=== PATIENT | female | born 2000 | race Caucasian/White ===

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

== ENCOUNTER → 2023-05-28 | Outpatient (CLI) | payer OTHER, SELFPAY ==
[2023-05-28 12:16] LABS: Erythrocyte Sedimentation Rate < 1 mm/hr (0-30)
[2023-05-28 12:24] LABS: Absolute Lymphocyte Count 1.12 X10^3/uL (0.83-4.51); Absolute Neutrophil Count 2.6 X10^3/uL (2.0-7.7); Basophil# 0.03 X10^3/uL; Basophil% 0.7 % (0-1); Eosinophil# 0.21 X10^3/uL; Eosinophils% 4.9 % (0-5); Hemoglobin 13.8 g/dL (12.0-15.0); Lymphocyte # 1.12 X10^3/ul (0.83-4.51); Lymphocyte % 26.2 % (19-41); Mean Corp Hgb Conc 32.1 g/dL (32-36); Mean Corpuscular Hgb 30.1 pg (27.0-32.0); Mean Corpuscular Volume 93.9 fL (81-99); Monocyte# 0.33 X10^3/uL; Monocyte% 7.7 % (0-10); NRBC Flagged by Analyzer 0 % (0-5); Neutrophil # 2.58 X10^3/uL (2.7-7.7); Neutrophil % 60.3 % (47-70); Platelet Count 202 K/mm3 (150-450); RBC Distribution Width CV 12.6 % (11.6-14.6); RBC Distribution Width SD 43.3 fl (35.1-43.9); Red Blood Count 4.58 M/mm3 (4.2-5.4); White Blood Count 4.3 K/mm3 (4.4-11.0)
[2023-05-28 12:41] LABS: ALB/GLOB Ratio 1.2 RATIO (0.9-2.4); AST(SGOT) 19 U/L (15-37); Alanine Aminotransfer ALT/SGPT 25 U/L (13-56); Albumin, Serum 3.7 g/dL (3.2-5.0); Alkaline Phosphatase 55 U/L (45-117); Anion Gap 3 (5-15); BUN 18 mg/dL (7-18); BUN/Creat Ratio 19.9 RATIO (10-20); CRP < 2.90 mg/L (0.0-3.0); Calcium,Total 9.1 mg/dL (8.5-10.1); Chloride 109 mmol/L (98-107); Creatinine, Serum 0.91 mg/dL (0.55-1.02); EST Glomerular Filtration Rate 83 mL/min (>60); Est Glom Filt Rate - Afr Amer 101 mL/min (>60); Globulin 3.1 g/dL (2.2-4.2); Glucose 82 mg/dL (74-106); Potassium 4.3 mmol/L (3.5-5.1); Protein, Total 6.8 g/dL (6.4-8.2); Rheumatoid Factor < 10.0 IU/mL (<15); Sodium Level 139 mmol/L (136-145)
[2023-05-28 13:09] LABS: Hepatitis B Surface Antibody Non-Reactive; Hepatitis B Surface Antigen Non-Reactive (Nonreactive); Hepatitis C Antibody Non-Reactive (Nonreactive)
[2023-05-29 11:08] LABS: ANTINUCLEAR ANTIBODIES DIRECT Positive (Negative)
[2023-06-01 18:07] LABS: CCP IgG Antibodies 4 units (0-19); HLA B27 Negative (.); QNTFERON TB Mitogen Value > 10.00 IU/mL (.); QNTFERON TB Nil Value 0 IU/mL (.); QNTFERON TB1+ Ag Value 0.02 IU/mL (.); QNTFERON TB2+ Ag Value 0.02 IU/mL (.); QNTIFERON TB Positive Criteria Negative (Negative)
== END | disposition home or self-care (01) ==
LOC: MTLAB 09:56
PROVIDERS: PCP Pediatrics; Referring Provider Internal Medicine Rheumatology; Visit Provider Internal Medicine Rheumatology
DX: M46.1 Sacroiliitis, not elsewhere classified (principal)
CPT/HCPCS: 36415; 80053; 81374; 85025; 85652; 86038; 86140; 86200; 86431; 86480; 86706; 86803; 87340

== ENCOUNTER → 2023-06-27 | Outpatient (CLI) | payer OTHER, SELFPAY ==
[2023-06-27 13:22] LABS: Prothrombin Time (Protime)PT. 13.3 SECONDS (11.7-14.9)
[2023-06-27 13:23] LABS: Protein, Urine (Random) 16.1 mg/dL (<11.9); Protein:Creat Ratio 61 mg/g CRE (0-200)
[2023-06-27 13:23] LABS: EXAGEN MAILED SPECIMEN
[2023-06-27 13:24] LABS: Partial Thromboplast Time 28.6 Seconds (24.1-36.2)
[2023-07-02 17:07] LABS: Dilute Prothrombin Time (dPT) 38.3 sec (0.0-47.6); Dilute Russell Viper Venom 33.3 sec (0.0-47.0); Hexagonal Phase Phospholipid 6 sec (0-11); Interpretation Comment: (.); PTT-LA 33.6 sec (0.0-43.5); Thrombin Time 17.5 sec (0.0-23.0); dPT Confirm Ratio 1.13 Ratio (0.00-1.34)
== END | disposition home or self-care (01) ==
LOC: LAB 12:14
PROVIDERS: PCP Pediatrics; Referring Provider Internal Medicine Rheumatology; Visit Provider Internal Medicine Rheumatology
DX: M46.1 Sacroiliitis, not elsewhere classified (principal); R76.8 Other specified abnormal immunological findings in serum
CPT/HCPCS: 36415; 82570; 84156; 85598; 85610; 85730

== ENCOUNTER 2023-08-13 08:00 | Outpatient (RCR) | payer OTHER, SELFPAY ==
--- NOTE | 2023-07-27 07:55 | HP.PTEVAL_ITS ---
Patient's Visit Information Visit Information Visit Information: VALENTIN KAPLAN is a 23 year old F referred to Physical Therapy by IRENE POON with a diagnosis of Spondylolysis. Date of Evaluation: 07/27/23 Physical Therapist: Darlin Madera DPT Visit Plan Frequency: 3x /Week Duration: 4 Weeks Plan: Focus on NEUTRAL spine core strength/stabilization- BRACE in standing. Start with low level Abd bracing exercises and build. HEP Given IE: Supine Abd Brace with October single leg and double leg, clams, HS Stretching Subjective Subjective: Patient reports that they think that she has spondy. She has had pain for 3 years on/off always in her low back that has always favored one side or the other- she has had mutliple MRI's- they diagnosed a spondy and put her in a back brace for 3 months. She has current pain in her low back- localized in the middle at this point. She has been in the brace since Sunday- she is in it for 3 months- she is in it all the time with the exception of showering and sleeping. She goes to school at [employer] and plays soccer- not currently playing soccer- home for break and goes back the of . They want her to do PT and then continue when she goes back- she would like to transfer back with her AT and also with PT. Worst pain in the last couple of days 3-4/10 she gets the most pain sitting long periods of time or playing. The pain does get to a 0/10- she gets relief when she gets up and moves around- sometimes better when she is laying flat. She does have some issues sleeping- usually a stomach or back sleeper. Previously she has done PT and AT for her back- she has done hip and core exercises- bugs- hand walkouts, palloff presses, biofeedback with exercises. 2 weeks ago she was doing her stuff and has not done anything really since then. Last time she played soccer was beginning of June. Nothing outside of PT. No N/T- No loss or change in bowel or bladder. PMHx: nothing other than back issue. Meds: none Objective Objective: Posture: brace- gives her good posture- without she has forward head, rounded shoulders Gait: no deviation noted SLS 30 sec without LOB bilateral Sensation: WNL bilateral LE to gross touch Flex: HS: mild Strength: Ankle: 5/5, Knee Right: Extn: 42, 44 Flexion: 25, 21 Hip: IR: 21, 23 ER: 25, 26, Flexion/Extn: 4/5 Left: Extn: 45, 46 Flexion: 21, 26 Hip IR: 21, 25 ER: 24, 23, Flexion/Ext: 4/5, Core: Fair Minus Palpation: tender along parapsinals and spinous process of L4-L5 Balance/Special Test Scores Oswestry Low Back Score: 4 Goals Goal 1:: Patient will report participation in home exercise program activities a minimum of 5 days per week, as adjunct to skilled physical therapy intervention in preparation for independent home management upon discharge. Goal Time Frame: 4-6 Weeks Goal 2:: Patient will report no pain with sleeping Goal Time Frame: 4-6 Weeks Rehabilitation Potential Physical Therapy Diagnosis: Patient presents with hypomobility- she has decreased LE and core strength/stabilization, flex and muscular endurance leadi ng to poor posture and increased pain with ADL's. Rehabilitation Potential: Excellent Anticipated Interventions Patient/Client Instruction: Educate patient on: Condition Therapeutic Exercise to Include: Strength training, Endurance training, Balance training, Coordination, Agility training, Body mechanics, Postural training, Flexibilty training, Gait and locomotor training, Neuromotor development, Passive ROM, Active ROM, Dynamic Lumbar Stabilization and Scapular Strength/Stabilization For the Purpose of:: To improve muscle performance and motor function Cryotherapy (ice pack, ice massage): Yes Thermo therapy (hot pack): Yes Text: Thank you for the opportunity to evaluate your patient. For Medicare and Medicare HMO plans, please review the plan of care and approve it. It will need to be FAXED BACK to us at [phone] for Medicare purposes. For Medicare only, by signing this I certify the plan of care. Please let me know if there are questions or concerns regarding this plan of care. Physician Signature: Date:
--- NOTE | 2023-08-13 09:04 | HP.PTDCSUM ---
Discharge Summary D/C summary: It has been my pleasure to treat VALENTIN KAPLAN referred by IRENE POON, with the diagnosis of Spondylolysis for a total of 7 visit(s). Discharge Date: Please see the following information for a summary of their discharge status. Subjective Subjective: Patient reports that she does not really have any pain. She has not really sat for a long time lately due to not being in school. 08/15 in the last few weeks. The last time she had pain was 2 days ago when she had to sit and it more stiff than anything else. Just in her low back- no pain radiating down the leg. Goes back to school tonight- her plan is to keep doing PT- she is planning to transfer back down there. Pain Bilateral Back: Pain Intensity (Out of 10): 0 Overall Improvement % Improvement: 80 Objective Objective/Function: Objective: Posture: brace- gives her good posture- without she has forward head, rounded shoulders Gait: no deviation noted SLS 30 sec without LOB bilateral Sensation: WNL bilateral LE to gross touch Flex: HS: mild Strength: Ankle: 5/5, Knee Right: Extn: 53 Flexion: 29 Hip: IR: 28 ER: 29 Flexion: 52 Extn: 53 Left: Knee: Extn: 56 Flexion: 29 Hip IR: 25 ER:32, Flexion: 51 Extn: 49, Core: Fair Palpation: tender along parapsinals and spinous process of L4-L5 Goals Goal 1:: Patient will report participation in home exercise program activities a minimum of 5 days per week, as adjunct to skilled physical therapy intervention in preparation for independent home management upon discharge. Goal Progress: Progressing Goal 2:: Patient will report no pain with sleeping Goal Progress: Progressing Plan Plan: 08/13/23: Return to school- appropriate to continue PT when returns to school- d/c from this clinic- was given HEP to continue- encouraged to call or email if questions. Initial eval: Focus on NEUTRAL spine core strength/stabilization- BRACE in standing. Start with low level Abd bracing exercises and build. Progress to more standing exercises as able and as able to maintain neutral spine. Add 1/2 knee pallof press next session. give HEP as able as she only is here for 2-3 weeks for PT then will cont once she is down at school.- TRB D/C Information d/c sentence: If there are questions or concerns regarding this patient's physical therapy, please feel free to call me at [phone]. Thank you for the referral of this patient. Sincerely, Darlin Madera, DPT Balance/Gait/Functional tests Balance/Special Test Scores Oswestry Low Back Score: 2 Improvement % Improvement: 80
== END 2023-08-13 19:00 | disposition home or self-care (01) ==
LOC: PT 08:00
PROVIDERS: PCP Family Medicine
DX: M43.00 Spondylolysis, site unspecified (principal)
CPT/HCPCS: 97110; 97162; 97164

== ENCOUNTER → 2023-12-20 | Outpatient (CLI) | payer OTHER, SELFPAY ==
[2023-12-25 00:07] LABS: Chlamydia By Nucleic Acid AMP Negative (Negative); Gonococcus By Nucleic Acid AMP Negative (Negative)
== END | disposition home or self-care (01) ==
PROVIDERS: Referring Provider Obstetrics & Gynecology; Visit Provider Obstetrics & Gynecology
DX: Z12.4 Encounter for screening for malignant neoplasm of cervix (principal); Z20.2 Contact with and (suspected) exposure to infections with a predominantly sexual mode of transmission
CPT/HCPCS: 87491; 87591; 88175; G0145